=== PATIENT | male | born 2000 | race Caucasian/White ===

== ENCOUNTER 2025-07-07 19:14 | Outpatient (REF) | payer SELFPAY ==
[2025-07-07 18:05] LABS: HCT 41.6 % (40.0-50.0); HGB 13.7 g/dL (13.5-17.5); MCH 29.3 pg (27.0-33.0); MCHC 32.9 % (32.0-36.0); MCV 89 fL (80-95); MPV 10.9 fL (8.0-11.0); Platelet Count 197 10^3/uL (130-400); RBC 4.67 10^6/uL (4.36-5.78); RDW 12.3 % (11.8-14.1); RDW-SD 39.8 fL; WBC 5.01 10^3/uL (4.4-10.8)
[2025-07-07 18:22] LABS: ALT 69 U/L (16-63); AST 39 U/L (15-37); Albumin 4.3 g/dL (3.4-5.0); Alkaline Phosphatase 57 U/L (46-116); Anion Gap 6.0 mmol/L (3-11); BUN 14 mg/dL (7-18); Bilirubin, Total 0.4 mg/dL (0.2-1.0); CO2 32.0 mmol/L (21.0-32.0); Calcium 9.1 mg/dL (8.5-10.1); Chloride 104 mmol/L (98-107); Cholesterol 129 mg/dL (<200); Estimated GFR 125.95 (mL/min/1.73m2); Glucose 89 mg/dL (74-106); HDL Cholesterol 65 mg/dL (>or=40); Potassium 4.6 mmol/L (3.5-5.1); Sodium 142 mmol/L (136-145); TSH 1.07 uIU/mL (0.36-3.74); Total Protein 7.5 g/dL (6.4-8.2)
[2025-07-07 18:38] LABS: Triglyceride <25 mg/dL (<150)
[2025-07-09 11:41] LABS: LDL CHOLESTEROL 49 mg/dL (<160)
== END 2025-07-07 19:15 | disposition home or self-care (01) ==
LOC: NCHCN 19:14
PROVIDERS: PCP Nurse Practitioner Family; Visit Provider Physician Assistant
DX: R53.81 Other malaise (principal); R53.83 Other fatigue; Z13.220 Encounter for screening for lipoid disorders
CPT/HCPCS: 80053; 80061; 83721; 85027; 84443